=== PATIENT | male | born 1960 | race African-American/Black ===

== ENCOUNTER 2020-12-29 12:37 | Observation (INO) | payer BC ==
[~2020-12-29] VITALS: Ht 177.8 cm; Wt 96.0 kg
[2020-12-29] MEDS ORDERED: diphenhydrAMINE 50 MG/ML VIAL IVP ONE ×3 (12:45→22:00)
[2020-12-29] MEDS ORDERED: methylPREDNISolone SOD SUCC PF 125 MG/2 ML VIAL. IV ONE (12:45)
[2020-12-29] MEDS ORDERED: FAMOTIDINE 20 MG/2 ML VIAL IVP ONE (12:45)
--- NOTE | 2020-12-29 13:07 | PHYS DOC ---
Past History Past Surgical History: Cholecystectomy, Hip Replacement Alcohol Use: None General Adult EDM: Chief Complaint: ALLERGIC REACTION HPI: HPI: Patient is a 60-year-old male who presents emergency department for upper lip swelling that started just prior to arrival. Patient has been taking lisinopril for several years and last took his dose at 10 AM. He denies any difficulty breathing, difficulty swallowing, vomiting or shortness of breath. Patient has no known allergies. Review of Systems: Review of Systems: HENT: See HPI Respiratory: See HPI GI: See HPI Current Medications: Current Meds: Current Medications Medications (Trade) Dose Ordered Sig/Nasreen Start Time Stop Time Status Last Admin Dose Admin Diphenhydramine HCl (Benadryl) 50 mg 1X ONCE 12/29/20 12:45 12/29/20 12:59 DC 12/29/20 12:52 50 MG Famotidine (Pepcid Vial) 40 mg 1X ONCE 12/29/20 12:45 12/29/20 12:59 DC 12/29/20 12:52 40 MG Methylprednisolone Sodium Succinate (SOLU-Medrol 125MG VIAL) 125 mg 1X ONCE 12/29/20 12:45 12/29/20 12:59 DC 12/29/20 12:52 125 MG Allergies: Allergies: Allergies Coded Allergies Type Severity Reaction Last Updated Verified lisinopril Allergy Unknown 12/29/20 Yes Physical Exam: PE: Constitutional: Well developed, well nourished, no acute distress, non-toxic appearance. [] HENT: Normocephalic, atraumatic, bilateral external ears normal, oropharynx moist, upper lip edema, posterior oropharyngeal edema, uvula is midline, patient is maintaining his secretions, no phonation changes, no oral exudates, nose normal. [] Eyes: PERRL, EOMI, conjunctiva normal, no discharge. [] Neck: Normal range of motion, no stridor Cardiovascular:Heart rate regular rhythm, no murmur [] Lungs & Thorax: Bilateral breath sounds clear to auscultation [] Abdomen: Bowel sounds normal, soft, no tenderness, no masses, no pulsatile masses. [] Skin: Warm, dry, no erythema, no rash. [] Back: Normal range of motion Extremities: No tenderness, no cyanosis, no clubbing, ROM intact, no edema. [] Neurologic: Alert and oriented X 3, normal motor function, normal sensory function, no focal deficits noted. [] Psychologic: Affect normal, judgement normal, mood normal. [] Current Patient Data: Labs: Laboratory Tests Test 12/29/20 12:44 White Blood Count 5.0 x10^3/uL Red Blood Count 4.65 x10^6/uL Hemoglobin 14.1 g/dL Hematocrit 41.0 % Mean Corpuscular Volume 88 fL Mean Corpuscular Hemoglobin 30 pg Mean Corpuscular Hemoglobin Concent 35 g/dL Red Cell Distribution Width 13.3 % Platelet Count 260 x10^3/uL Neutrophils (%) (Auto) 55 % Lymphocytes (%) (Auto) 25 % Monocytes (%) (Auto) 12 % Eosinophils (%) (Auto) 7 % Basophils (%) (Auto) 1 % Neutrophils # (Auto) 2.7 x10^3uL Lymphocytes # (Auto) 1.3 x10^3/uL Monocytes # (Auto) 0.6 x10^3/uL Eosinophils # (Auto) 0.4 x10^3/uL Basophils # (Auto) 0.0 x10^3/uL Sodium Level 141 mmol/L Potassium Level 3.4 mmol/L Chloride Level 105 mmol/L Carbon Dioxide Level 23 mmol/L Anion Gap 13 Blood Urea Nitrogen 14 mg/dL Creatinine 1.1 mg/dL Estimated GFR (Cockcroft-Gault) 67.8 BUN/Creatinine Ratio 13 Glucose Level 120 mg/dL Calcium Level 8.4 mg/dL Total Bilirubin 0.7 mg/dL Aspartate Amino Transf (AST/SGOT) 20 U/L Alanine Aminotransferase (ALT/SGPT) 29 U/L Alkaline Phosphatase 91 U/L Total Protein 7.6 g/dL Albumin 3.9 g/dL Albumin/Globulin Ratio 1.1 Current Medications Medications (Trade) Dose Ordered Sig/Nasreen Route PRN Reason Start Time Stop Time Status Last Admin Dose Admin Diphenhydramine HCl (Benadryl) 50 mg 1X ONCE IVP 12/29/20 12:45 12/29/20 12:59 DC 12/29/20 12:52 Famotidine (Pepcid Vial) 40 mg 1X ONCE IVP 12/29/20 12:45 12/29/20 12:59 DC 12/29/20 12:52 Methylprednisolone Sodium Succinate (SOLU-Medrol 125MG VIAL) 125 mg 1X ONCE IV 12/29/20 12:45 12/29/20 12:59 DC 12/29/20 12:52 Vital Signs: Vital Signs Date Time Temp Pulse Resp B/P (MAP) Pulse Ox O2 Delivery O2 Flow Rate FiO2 12/29/20 12:37 98.2 98 16 133/96 (108) 98 Room Air EKG: EKG: EKG performed by ER staff at 1248 shows sinus rhythm, rate of 91, QTc 430, no STEMI read by Dr. Ewing [] Radiology/Procedures: Radiology/Procedures: [] Heart Score: C/O Chest Pain: N/A Risk Factors: Risk Factors: DM, Current or recent (<one month) smoker, HTN, HLP, family history of CAD, obesity. Risk Scores: Score 0 - 3: 2.5% MACE over next 6 weeks - Discharge Home Score 4 - 6: 20.3% MACE over next 6 weeks - Admit for Clinical Observation Score 7 - 10: 72.7% MACE over next 6 weeks - Early Invasive Strategies Course & Med Decision Making: Course & Med Decision Making Pertinent Labs and Imaging studies reviewed. (See chart for details) [] Patient presents to the emergency department for upper lip swelling. Patient takes lisinopril. Patient treated with Benadryl, Pepcid and Solu-Medrol. Patient is noted to have posterior oropharyngeal edema. Following treatment of medication, swelling has no change. I discussed the need for observation for possible airway management with patient he is agreeable to care plan. Discussed these findings with Dr. Bunch who agreed to admit the patient for angioedema in ICU. [facility] ICU has no beds available, I contacted Dr. Hester who agreed to admit the patient to [facility] under his services. Patient remains stable, edema has improved, Sebastian ZAPATA Disclaimer: Sebastian Disclaimer: This electronic medical record was generated, in whole or in part, using a voice recognition dictation system. 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
[2020-12-29 13:12] LABS: BASO % 1 % (0-3); EOS # 0.4 x10^3/uL (0.0-0.7); EOS % 7 % (0-3); HEMOGLOBIN 14.1 g/dL (13.0-17.5); LYMPH # 1.3 x10^3/uL (1.0-4.8); LYMPH % 25 % (24-48); MEAN CORPUSCULAR HEMOGLOBIN 30 pg (25-35); MEAN CORPUSCULAR HGB CONC 35 g/dL (31-37); MEAN CORPUSCULAR VOLUME 88 fL (79-100); MONO # 0.6 x10^3/uL (0.0-1.1); MONO % 12 % (0-9); NEUT # 2.7 x10^3uL (1.8-7.7); NEUT % 55 % (31-73); PLATELET COUNT 260 x10^3/uL (140-400); RED BLOOD COUNT 4.65 x10^6/uL (4.30-5.70); RED CELL DISTRIBUTION WIDTH 13.3 % (11.5-14.5)
--- NOTE | 2020-12-29 13:16 | EKG ---
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
[2020-12-29 13:29] LABS: CALCIUM 8.4 mg/dL (8.5-10.1); CREATININE 1.1 mg/dL (0.7-1.3); GFR 67.8; POTASSIUM 3.4 mmol/L (3.5-5.1)
[2020-12-29 13:36] LABS: ALBUMIN 3.9 g/dL (3.4-5.0); ALBUMIN/GLOBULIN RATIO 1.1 (1.0-1.7); TOTAL BILIRUBIN 0.7 mg/dL (0.2-1.0); TOTAL PROTEIN 7.6 g/dL (6.4-8.2)
[2020-12-29] MEDS: IV NORMAL SALINE 1,000ML 1,000 ML IV SCH (19:32)
--- NOTE | 2020-12-29 21:00 | NUR ---
The patient, MARYCARMEN HAWKINS, 60 y/o, M admitted by AZEB JOHNSON MD, was given written information regarding hospital policies, unit procedures and contact persons. Valuables were checked and vitals obtained. Pt is admitted with angioedema. Pt has swelling to upper lip able to speak and swallow appropriately. Pt is on room air, able to ambulate to toilet on own. Currently pts only concern is getting back home. Currently pt is resting in bed. Will continue to monitor.
[2020-12-29 21:23] VITALS: BP 138/90
[2020-12-29] MEDS ORDERED: AMLO-187 PO (21:53)
[2020-12-29] MEDS ORDERED: ASCO100T4 PO (21:53)
[2020-12-29] MEDS ORDERED: ASPI-630 PO (21:53)
[2020-12-29] MEDS ORDERED: CHOL10004 PO (21:53)
[2020-12-29] MEDS ORDERED: SIMV40TA18 PO (21:53)
[2020-12-29 22:00] VITALS: BP 137/91
[2020-12-29] MEDS ORDERED: FAMOTIDINE 20 MG TABLET PO ONE (22:00)
[2020-12-29] MEDS ORDERED: methylPREDNISolone SOD SUCC PF 40 MG/ML VIAL. IV ONE (22:00)
[2020-12-29 23:13] VITALS: BP 124/88
[2020-12-30] VITALS (7 sets, daily range): BP systolic 120–153; BP diastolic 76–101
[2020-12-30] MEDS: IV NORMAL SALINE 1,000ML 1,000 ML IV SCH (04:15)
[2020-12-30 06:21] LABS: HEMOGLOBIN 13.2 g/dL (13.0-17.5); RED BLOOD COUNT 4.38 x10^6/uL (4.30-5.70); RED CELL DISTRIBUTION WIDTH 13.4 % (11.5-14.5)
[2020-12-30 06:40] LABS: ALBUMIN 3.4 g/dL (3.4-5.0); CALCIUM 8.7 mg/dL (8.5-10.1); CREATININE 0.9 mg/dL (0.7-1.3); GFR 103.5; POTASSIUM 3.9 mmol/L (3.5-5.1); TOTAL BILIRUBIN 0.5 mg/dL (0.2-1.0); TOTAL PROTEIN 6.9 g/dL (6.4-8.2)
[2020-12-30] MEDS ORDERED: ASCORBIC ACID 500 MG TABLET PO SCH (09:00)
[2020-12-30] MEDS ORDERED: ASPIRIN CHEWABLE 81 MG TABLET. PO SCH (09:00)
[2020-12-30] MEDS ORDERED: amLODIPine BESYLATE 10 MG TABLET PO SCH (09:00)
[2020-12-30] MEDS ORDERED: CHOLECALCIFEROL (VITAMIN D3) 1,000 UNIT TABLET PO SCH (09:00)
[2020-12-30] MEDS ORDERED: methylPREDNISolone SOD SUCC PF 40 MG/ML VIAL. IV PRN (09:15)
[2020-12-30] MEDS ORDERED: diphenhydrAMINE 50 MG/ML VIAL IM PRN (09:15)
[2020-12-30] MEDS ORDERED: FAMOTIDINE 20 MG/2 ML VIAL IVP PRN (09:15)
[2020-12-30] MEDS ORDERED: diphenhydrAMINE 50 MG/ML VIAL IV PRN (09:37)
--- NOTE | 2020-12-30 13:54 | SSS ---
DATE OF SERVICE: 12/30/2020 ADMIT DATE: 12/29/2020 HISTORY OF PRESENT ILLNESS: The patient is a 60-year-old -Iranian male patient who presented to the Emergency Room with upper lip swelling that started just prior to arrival. The patient has been taking lisinopril for several years and last took his dose 10:00 a.m. He denied any difficulty breathing, difficulty swallowing, vomiting, or shortness of breath. The patient has no known drug allergies. He was evaluated in the Emergency Room, has had lab work, which were mostly unremarkable. He was treated with steroids in the form of methylprednisone 40 mg plus diphenhydramine and famotidine and was observed overnight and did very well. When I saw him this afternoon, he looked well and was clearly in no apparent respiratory distress. The swelling of his lips has dramatically improved as he took pictures of his lip yesterday morning and today, his swelling has completely subsided. He has eaten his lunch. He has no difficulty breathing. His oxygen saturation is 98% and therefore, the patient was discharged home to continue with tapering course of steroids, Pepcid 20 mg twice a day and diphenhydramine. His primary care physician in [place], [place] was already notified and he will change his antihypertensive medication to another class of antihypertensive other than STEPHANIE inhibitors. PAST MEDICAL HISTORY: Significant for hypertension, hyperlipidemia and vitamin D deficiency. PAST SURGICAL HISTORY: Significant for cholecystectomy and hip replacement. FAMILY HISTORY: Noncontributory. SOCIAL HISTORY: He lives with his family. He does not smoke, drink alcohol or do recreational drugs. PHYSICAL EXAMINATION: GENERAL: When I saw him this afternoon, he looked well and was clearly in no apparent respiratory distress. No pallor, jaundice, cyanosis or thyromegaly. No jugular venous distention. No limb edema. VITAL SIGNS: His heart rate was 96, blood pressure was 153/101, his temperature was 98.2, respiratory rate 14, and oxygen saturation was 98% on room air. HEAD, EYES, EARS, NOSE, AND THROAT: Normocephalic, atraumatic. NECK: Supple. HEART: Showed normal first and second heart sounds. No gallop, rub or murmur. CHEST: Clear to auscultation, no crepitation or rhonchi. ABDOMEN: Distended, soft, nontender. NEUROLOGIC: He was grossly intact. ASSESSMENT AND PLAN: The patient was discharged home to continue on his home medication that included amlodipine 10 mg once a day, ascorbic acid 100 mg once a day, aspirin 81 mg once a day, ergocalciferol for vitamin D3 at 25 mcg once a day and simvastatin 40 mg daily. He will be on prednisone 40 mg once a day for 2 days, 30 mg once a day for 2 days, 20 mg once a day for 2 days, Pepcid 20 mg twice a day and as needed diphenhydramine. FINAL DISCHARGE DIAGNOSES: Angioneurotic edema due to STEPHANIE inhibitors, which were discontinued; hypertension; hyperlipidemia. DILIA DR: Jessica TID: [id number]
[2020-12-30] MEDS ORDERED: ATORVASTATIN CALCIUM 20 MG TABLET PO SCH (21:00)
== END 2020-12-30 14:00 | disposition home or self-care (01) ==
LOC: ER 12:37 → ICU 19:17
PROVIDERS: ADMIT Internal Medicine; ATTEND Internal Medicine
DX: T78.3XXA Angioneurotic edema, initial encounter (principal); Z20.822 Contact with and (suspected) exposure to COVID-19; I10 Essential (primary) hypertension; E78.5 Hyperlipidemia, unspecified; T46.4X5A Adverse effect of angiotensin-converting-enzyme inhibitors, initial encounter; E53.8 Deficiency of other specified B group vitamins; Z90.49 Acquired absence of other specified parts of digestive tract; Z79.82 Long term (current) use of aspirin; Z79.899 Other long term (current) drug therapy; Z96.649 Presence of unspecified artificial hip joint
CPT/HCPCS: 36415; 80053; 82947; 85025; 85027; 87426; 93005; 96374; 96375; 96376; 99284; G0378; J1200; J2920; J2930; J3490; J7030; U0003; G0379